=== PATIENT | male | born 1965 | race Caucasian/White ===

== ENCOUNTER 2019-12-03 13:23 | Outpatient (CLI) | payer MEDICARE, MEDICAID, SELFPAY ==
--- NOTE | 2019-12-03 13:31 | XR_ITS ---
WS: [id number] LUMBAR SPINE: 3 VIEWS TECHNIQUE: AP, lateral and L5-S1 spot. HISTORY: LUMBAR SPINE PAIN COMPARISON: None available. Mild RIGHT convex scoliosis of the lumbar spine. L5 anterolisthesis by 7.5 mm. Severe degenerative di sc space narrowing at L5-S1. Bilateral pars defects are likely at L5. No fractures. Moderate atherosclerosis aorta. SI joints are symmetric bilaterally. No soft tissue abnormalities. Sclerotic changes in the RIGHT ilium and at the LEFT SI joint are probably bone islands. XR/XR lumbar spine 2-3V* [id number] IMPRESSION: 1. Mild rotoscoliosis lumbar spine. 2. Grade 1 anterolisthesis of L5 with spondylolysis likely.
--- NOTE | 2019-12-03 13:31 | XR_ITS ---
WS: [id number] THORACIC SPINE TECHNIQUE: AP and lateral views are performed. HISTORY: THORACIC BACK PAIN COMPARISON: None available. Marked reverse S-shaped curvature of the cervical thoracic spine. RIGHT convexity of the lower thorac ic vertebral bodies. Pedicles are all identified. No fractures. Osteopenia and mild disc space narrow ing throughout. Soft tissue calcification LEFT upper thorax. 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 Disc space narrowi ng with no fractures identified.
== END 2019-12-03 13:24 | disposition home or self-care (01) ==
PROVIDERS: Family Provider Nurse Practitioner; PCP Nurse Practitioner Family; Visit Provider Nurse Practitioner Family
DX: M47.896 Other spondylosis, lumbar region (principal); M43.8X2 Other specified deforming dorsopathies, cervical region; M54.5 Low back pain; M54.6 Pain in thoracic spine
CPT/HCPCS: 72070; 72100

== ENCOUNTER → 2019-12-04 13:40 | Outpatient (BNVA) | payer MEDICARE, MEDICAID, SELFPAY | PROVIDERS: Family Provider Nurse Practitioner; PCP Nurse Practitioner Family; Referring Provider Family Medicine; Visit Provider Nurse Practitioner Family | DX: R52 Pain, unspecified (principal) | CPT/HCPCS: 73130 ==

== ENCOUNTER 2020-02-07 12:07 | Emergency (ER) | payer MEDICARE, MEDICAID, SELFPAY ==
[2020-02-07 12:08] VITALS: BP 146/93; PULSE 101; RESP 16; TEMP 36.5; O2SAT 92; BMI 22.6
--- NOTE | 2020-02-07 12:20 | XR_ITS ---
WS: [id number] XR chest 1V portable [id number] REASON FOR EXAM: cough/congestion FINDINGS: Rotoscoliosis convex to the right. The heart is not enlarged. There is no definite pneumonia, pleural effusion, pulmonary edema, or mass effect seen. The hilum and apices normal. There is arteriosclerotic changes in the arch of the aorta. XR/XR chest 1V portable [id number] IMPRESSION: Moderately severe rotoscoliosis convex to the right with rotation of the thorac ic cavity to the left There is arteriosclerotic changes in the arch of the aorta. There is no definite infiltrate seen.
--- NOTE | 2020-02-07 12:21 | ED_ITS ---
HPI - URI/Sore Throat General: Chief Complaint: Headache Stated Complaint: Sore throat/headache Time Seen by Provider: 02/07/20 12:11 Source: patient Mode of arrival: ambulatory Limitations: no limitations History of Present Illness: HPI Narrative: Patient is a 54-year-old male who presents to ED today with complaints of a cough x1 day. Patient is an every day smoker and states he normally suffers from a smoker's cough . He states this cough is different because it is accompanied with a runny nose and a subjective fever yesterday. He has no other complaints at this time. He does not complain of shortness of breath or difficulty breathing. He admittedly has been afebrile throughout today without medications. He denies sore throat, nasal congestion, sinus pain/pressure, vomiting or diarrhea. No recent travel. No known sick contact exposure. MD elicited complaint: fever and cough Able to tolerate fluids by mouth: Yes Exacerbating factors: nothing Relieving factors: nothing Associated symptoms: Reports fever(s) (subjective ); Deny abdominal pain, chills, chest pain, diarrhea, headache(s), nausea or vomiting Review of Systems General: Reports: 10 or more systems reviewed and unremarkable except in HPI and below Const: Reports: fever (subjective ); Denies: chills, body aches, change in appetite, change in weight, fatigue or malaise Eyes: Denies: change in vision, blurry vision or photophobia ENMT: Denies: throat pain, enlarged tonsils or painful swallowing Card: Denies: chest pain, palpitations, irregular heart rhythm, edema, lightheadedness, syncope, pre-syncope or shortness of breath when lying down Resp: Reports: productive cough and chest congestion; Denies: shortness of breath, pain on inspiration or coughing up blood GI: Denies: abdominal pain, nausea, vomiting or diarrhea Musc: Denies: neck pain or back pain Skin/Breast: Denies: rash Neuro: Denies: headache, numbness in extremities, weakness in extremities or changes in sensation PFS ED PFSH: Social History (Updated 12/04/19 @ 13:30 by Megan Glover LPN) Smoking and tobacco status: current every day smoker Physical Exam Const: COMMON NORMALS: no apparent distress, average body habitus, oriented x3, no limitations and alert HENMT: COMMON NORMALS: normocephalic, head/scalp atraumatic, hearing grossly normal bilaterally, external ears normal, EAC's normal, TM's normal bilaterally, external nose normal, nasal mucous membranes and turbinates normal, moist oral mucous membranes and oropharynx normal HEAD & SCALP: normocephalic and atraumatic NOSE: external nose normal and nasal mucous membranes and turbinates normal EXTERNAL EAR: Yes external ears normal EXTERNAL AUDITORY CANAL: EAC's normal TYMPANIC MEMBRANE: TM's normal bilaterally Eye: COMMON NORMALS: PERRL, EOMs intact bilaterally, conjunctivae normal and no scleral icterus CONJUNCTIVA: Yes conjunctivae normal PUPIL: Yes PERRL Neck/C-Spine: COMMON NORMALS: full ROM, no lymphadenopathy and no meningeal signs Resp: COMMON NORMALS: normal respiratory effort AUSCULTATION: wheezes scattered wheezes and throughout Cardio: COMMON NORMALS: regular rate and regular rhythm RATE: regular rate RHYTHM: regular rhythm Neuro: COMMON NORMALS: oriented x3 SENSORIUM/ORIENTATION: Yes alert MENINGEAL SIGNS: Yes no meningeal signs Skin: COMMON NORMALS: no rashes or lesions noted GENERAL SKIN EXAM: no rashes or lesions noted Course Vital Signs: Vital signs: Vital Signs Temperature 97.7 F 02/07/20 12:08 Pulse Rate 85 02/07/20 13:13 Respiratory Rate 18 02/07/20 13:13 Blood Pressure 115/96 02/07/20 13:13 Pulse Oximetry 91 02/07/20 13:13 MDM - URI/Sore Throat MDM Narrative: Medical decision making narrative: Patient clinically appears in no acute distress. His vital signs are completely stable. CXR is normal. He does not meet state criteria for COVID-19 testing. Patient was recommended to self quarantine at home. Recommended symptomatic control for his cough. Lab Data: Labs: Lab Results 02/07/20 Range/Units 12:28 Influenza Type A A g Negative (Negative) POC Influenza B Ag Negative (Negative) Imaging Data^: CXR: Radiologist's impression: [address] [address] XRay Report Signed Patient: Norm Trinh Unit #: [id number] : [id number] Age/Sex: 54 / M ADM Date: 02/07/20 Loc: ER Room/Bed: Attending Dr: Ordering Provider/Ordering MD: Judi Salinas Date of Service: 02/07/20 Procedure(s): XR chest 1V portable [id number] Accession Number(s): [id number] Report Number: [id number] WS: [id number] XR chest 1V portable [id number] REASON FOR EXAM: cough/congestion FINDINGS: Rotoscoliosis convex to the right. The heart is not enlarged. There is no definite pneumonia, pleural effusion, pulmonary edema, or mass effect seen. The hilum and apices normal. There is arteriosclerotic changes in the arch of the aorta. XR/XR chest 1V portable [id number] IMPRESSION: Moderately severe rotoscoliosis convex to the right with rotation of the thoracic cavity to the left There is arteriosclerotic changes in the arch of the aorta. There is no definite infiltrate seen. Dictated By: Chetan Miranda DO Signed By: Chetan Miranda DO Signed Date/Time: 02/07/20 1237 DD/ 1236 Discharge Plan Discharge Patient Disposition: Home, Self-Care Clinical Impression: Upper respiratory infection, viral Condition: Stable Prescriptions: New albuterol sulfate 90 mcg/actuation HFA aerosol inhaler 2 inh INHALATION Q4H PRN (Reason: shortness of breath) Qty: 6.7 RF: 0 Discharge Orders: Discharge Order (Routine); Ordered 02/07/20 Ordered By: Judi Salinas Referrals: Manjula Dasilva APN [Family Provider] - TristanOdalys FNP [Primary Care Provider] - Discharge Diet: Usual diet Discharge Activity: Increase activity as tolerated Patient Instructions: Cigarette Smoking and Your Health (GEN), Viral Syndrome (ED), Upper Respiratory Infection - Adult Discharge Date/Time: 02/07/20 13:13 Coding Level of Care Code ED Health Insurance Specialist for Chg Fwd Exam Detailed
[2020-02-07 13:00] LABS: Influenza A by IFA Negative (Negative); Influenza B by IFA Negative (Negative)
[2020-02-07 13:13] VITALS: BP 115/96; PULSE 85; RESP 18; O2SAT 91
== END 2020-02-07 13:13 | disposition home or self-care (01) ==
PROVIDERS: Emergency Provider Physician Assistant; Family Provider Nurse Practitioner; PCP Nurse Practitioner Family
DX: J06.9 Acute upper respiratory infection, unspecified (principal); F17.200 Nicotine dependence, unspecified, uncomplicated
CPT/HCPCS: 12345; 71045; 87804; 99282; 99283

== ENCOUNTER → 2020-03-01 09:40 | Outpatient (BNVA) | payer MEDICARE, SELFPAY | PROVIDERS: Family Provider Nurse Practitioner; PCP Nurse Practitioner Family; Visit Provider Nurse Practitioner Family | DX: R39.9 Unspecified symptoms and signs involving the genitourinary system (principal) | CPT/HCPCS: 81001 ==

== ENCOUNTER → 2020-04-19 16:03 | Outpatient (BNVA) | payer MEDICARE, SELFPAY | PROVIDERS: Family Provider Nurse Practitioner; PCP Nurse Practitioner Family; Visit Provider Urology | DX: R39.9 Unspecified symptoms and signs involving the genitourinary system (principal); R35.8 Other polyuria; N39.44 Nocturnal enuresis; F17.210 Nicotine dependence, cigarettes, uncomplicated | CPT/HCPCS: 81001 ==